=== PATIENT | male | born 1950 | race Caucasian/White ===

== ENCOUNTER 2023-05-23 07:04 | Outpatient (CLI) | payer MEDICARE, SELFPAY ==
--- NOTE | 2023-05-23 08:42 | W.ANESCHARGE ---
Anesthesia Charges Start Date/Time Anesthesia Start Date: 05/23/23 Anesthesia Start Time: 08:05 Stop Date/Time Anesthesia Stop Date: 05/23/23 Anesthesia Stop Time: 08:40
== END 2023-05-23 07:05 | disposition home or self-care (01) ==
PROVIDERS: Visit Provider Internal Medicine Gastroenterology
DX: Z86.010 Personal history of colon polyps (principal); K57.30 Diverticulosis of large intestine without perforation or abscess without bleeding; K64.8 Other hemorrhoids; I85.00 Esophageal varices without bleeding
CPT/HCPCS: 00813; 43235; 45378; J2704